=== PATIENT | male | born 1975 | race Caucasian/White ===

== ENCOUNTER 2019-09-25 22:33 | Outpatient (CLI) | payer SELFPAY | END 2019-09-25 22:34 | disposition critical access hospital (66) | LOC: EMS 22:33 | PROVIDERS: ATTEND Surgery | DX: R51 Headache (principal); M54.2 Cervicalgia; R50.9 Fever, unspecified | CPT/HCPCS: A0425; A0429 ==

== ENCOUNTER 2019-09-25 22:53 | Emergency (ER) | payer SELFPAY ==
--- NOTE | 2019-09-25 22:55 | ED Physician Documentation ---
History of Present Illness - Stated complaint Stated Complaint: SZ - Chief complaint Chief Complaint: Neuro - History obtained from History obtained from: Patient (The patient is a 43-year-old male who speaks a moderate amount of German but Georgian is his primary language he reports that he currently is living out of a hotel and he thinks he might of had a seizure EMS reports that his friend saw him shaking so they called 911 the patient's denying trauma, alcohol or drug use he denies any other complaints and reports that he is ready to go home.) Review of Systems Constitutional: reports: Reviewed and negative Eyes: reports: Reviewed and negative Ears: reports: Reviewed and negative Nose: reports: Reviewed and negative Throat: reports: Reviewed and negative Cardiac: reports: Reviewed and negative Respiratory: reports: Reviewed and negative GI: reports: Reviewed and negative : reports: Reviewed and negative Skin: reports: Reviewed and negative Musculoskeletal: reports: Reviewed and negative Neurologic: reports: Seizure Psychiatric: reports: Reviewed and negative Endocrine: reports: Reviewed and negative Immunocompromised: reports: Reviewed and negative PD PAST MEDICAL HISTORY - Present Medications Home Medications: Ambulatory Orders Medication Instructions Recorded Confirmed No Known Home Medications 09/26/19 09/26/19 - Allergies Allergies/Adverse Reactions: Allergies Allergy/AdvReac Type Severity Reaction Status Date / Time No Known Drug Allergies Allergy Verified 09/26/19 00:08 PD ED PE NORMAL - Vitals Vital signs reviewed: Yes - General General: Alert and oriented X 3, No acute distress - HEENT HEENT: PERRL - Neck Neck: Supple, no meningeal sign - Cardiac Cardiac: RRR, No murmur - Respiratory Respiratory: Clear bilaterally - Abdomen Abdomen: Normal bowel sounds, Soft, Non tender, Non distended - Derm Derm: Warm and dry - Extremities Extremities: No deformity - Neuro Neuro: Alert and oriented X 3, certified addiction counselor 2-12 intact, No motor deficit, No sensory deficit, Normal speech - Psych Psych: Normal mood, Normal affect Results - Vitals Vitals: Vital Signs - 24 hr 09/25/19 09/26/19 09/26/19 23:02 01:05 02:17 Temperature 36.6 C Heart Rate 89 78 76 Respiratory 20 16 14 Rate Blood Pressure 123/79 113/64 97/58 L O2 Saturation 97 94 95 Oxygen O2 Source Room air - EKG (time done) 11:25 Rate: Other (No STEMI) - Labs Labs: Laboratory Tests 09/25/19 09/25/19 09/25/19 23:35 23:35 23:35 WBC 9.9 RBC 4.53 L Hgb 13.8 L Hct 40.5 L MCV 89.4 MCH 30.5 MCHC 34.1 RDW 12.7 Plt Count 218 MPV 10.0 Neut # (Auto) 6.5 Lymph # (Auto) 2.0 [place] # (Auto) 1.1 H Eos # (Auto) 0.2 Baso # (Auto) 0.0 Absolute Nucleated RBC 0.00 Nucleated RBC % 0.0 Sodium 134 L Potassium 3.6 Chloride 101 Carbon Dioxide 25 Anion Gap 8.0 BUN 23 H Creatinine 0.7 Estimated GFR (MDRD) 124 Glucose 117 H Lactic Acid 1.3 Calcium 8.4 L Total Bilirubin 0.2 AST 23 ALT 25 Alkaline Phosphatase 49 Total Creatine Kinase 139 Troponin I High Sens Total Protein 6.6 L Albumin 3.6 Globulin 3.0 Albumin/Globulin Ratio 1.2 Lipase 36 Salicylates < 6.0 Acetaminophen < 10 L Ethyl Alcohol < 5.0 09/25/19 23:35 WBC RBC Hgb Hct MCV MCH MCHC RDW Plt Count MPV Neut # (Auto) Lymph # (Auto) [place] # (Auto) Eos # (Auto) Baso # (Auto) Absolute Nucleated RBC Nucleated RBC % Sodium Potassium Chloride Carbon Dioxide Anion Gap BUN Creatinine Estimated GFR (MDRD) Glucose Lactic Acid Calcium Total Bilirubin AST ALT Alkaline Phosphatase Total Creatine Kinase Troponin I High Sens 8.4 Total Protein Albumin Globulin Albumin/Globulin Ratio Lipase Salicylates Acetaminophen Ethyl Alcohol PD MEDICAL DECISION MAKING - ED course Complexity details: other (Patient was reevaluated multiple timesWhile in the emergency department he has been seizure-free he is awake, alert, oriented no signs of any seizure-like activity I explained all of his results to include imaging of the head and the labs as well. Patient reports that he feels better and he would like to be discharged home I had a lengthy discussion with this patient regarding the fact that this could possibly be new onset seizures I did offer to transfer the patient to a higher level of care for neurology evaluation however the patient reports that he would like to be discharged home at this time he does have medical decision-making capability and capacity accepts he accepts all risks to include repeat seizures and or any adverse outcomes such as sudden or permanent disability.) Departure - Departure Disposition: Home, Self Care Clinical Impression: Seizure Condition: Good Instructions: First Aid Seizures Follow-Up: YOUR,DOCTOR [Other] Print Language: Georgian Discharge Date/Time: 09/26/19 02:25
[2019-09-25] MEDS ORDERED: levETIRAcetam INJ 1,500 MG in SODIUM CHLORIDE 0.9% 100ML 100 ML IV STA (23:19)
[2019-09-25 23:44] LABS: BASOPHILS % (AUTO) 0.3 %; EOSINOPHILS # (AUTO) 0.2 10^3/uL (0.0-0.7); EOSINOPHILS % (AUTO) 2.3 %; HGB - HEMOGLOBIN 13.8 g/dL (14.0-18.0); MEAN CORPUSCULAR HEMOGLOBIN 30.5 pg (27.0-31.0); MEAN CORPUSCULAR HGB CONC 34.1 g/dL (32.0-36.0); MEAN CORPUSCULAR VOLUME 89.4 fL (80.0-94.0); MONOCYTES # (AUTO) 1.1 10^3/uL (0.0-1.0); MONOCYTES % (AUTO) 10.8 %; NEUTROPHILS # (AUTO) 6.5 10^3/uL (1.5-6.6); NEUTROPHILS % (AUTO) 66.1 %; PLT - PLATELET COUNT 218 10^3/uL (130-450); RED BLOOD COUNT 4.53 10^6/uL (4.70-6.10); RED CELL DISTRIBUTION WIDTH 12.7 % (12.0-15.0); WHITE BLOOD COUNT 9.9 x10^3/uL (4.8-10.8)
[2019-09-25 23:59] LABS: ACETAMINOPHEN < 10 ug/mL (10-30); ALBUMIN 3.6 g/dL (3.2-5.5); ALBUMIN/GLOBULIN RATIO 1.2 (1.0-2.2); ALKALINE PHOSPHATASE 49 IU/L (42-121); ALT ALANINE AMINOTRANSFERASE 25 IU/L (10-60); AST ASPARTATE AMINOTRANSFERASE 23 IU/L (10-42); BILIRUBIN,TOTAL 0.2 mg/dL (0.2-1.0); BUN - BLOOD UREA NITROGEN 23 mg/dL (6-20); CALCIUM 8.4 mg/dL (8.5-10.3); CARBON DIOXIDE - CO2 25 mmol/L (21-32); CHLORIDE 101 mmol/L (101-111); CK- CREATINE KINASE 139 IU/L (22-269); CREATININE 0.7 mg/dL (0.6-1.2); GFR - MDRD 124 (>89); GLUCOSE 117 mg/dL (70-100); LIPASE 36 U/L (22-51); SALICYLATE < 6.0 mg/dL; SODIUM 134 mmol/L (135-145); TOTAL PROTEIN 6.6 g/dL (6.7-8.2)
--- NOTE | 2019-09-26 01:13 | XRAY Report ---
Reason: ams Procedure Date: 09/26/2019 Accession Number: [id number] / [id number] Procedure: XR - Chest 1 View X-Ray CPT Code: 42302 Final Report FULL RESULT: EXAM: CHEST RADIOGRAPHY EXAM DATE: 09/26/2019 12:59 AM. CLINICAL HISTORY: Altered mental status COMPARISON: None. TECHNIQUE: 1 view. FINDINGS: The mediastinal and cardiac silhouettes are normal. The lungs are clear. A calcified granuloma is seen in the left upper lobe. No pleural effusion or pneumothorax is seen. The osseous structures are intact. IMPRESSION: Clear lungs. RADIA
--- NOTE | 2019-09-26 01:16 | CT Report ---
Reason: seizure/ams Procedure Date: 09/26/2019 Accession Number: [id number] / [id number] Procedure: CT - HEAD WO CPT Code: Final Report FULL RESULT: EXAM: CT HEAD EXAM DATE: 09/26/2019 01:00 AM. CLINICAL HISTORY: Seizure/ams. COMPARISON: None. TECHNIQUE: Multiaxial CT images were obtained from the foramen magnum to the vertex. Reformats: Sagittal and coronal. IV contrast: None. In accordance with CT protocol optimization, one or more of the following dose reduction techniques were utilized for this exam: automated exposure control, adjustment of mA and/or KV based on patient size, or use of iterative reconstructive technique. FINDINGS: Parenchyma: No intraparenchymal hemorrhage. No evidence of mass, midline shift, or CT findings of infarction. Leiva-white differentiation is distinct. Extraaxial Spaces: Normal for age. No subdural or epidural collections identified. Ventricles: Normal in size and position. Sinuses and Orbits: Imaged paranasal sinuses, orbits, and mastoids show no significant abnormality. Bones: A left frontal calvarial defect is seen. There is no evidence of acute fracture. Other: None. IMPRESSION: No acute intracranial abnormalities. RADIA
[2019-09-26 02:18] VITALS: BP 97/58
== END 2019-09-26 02:25 | disposition home or self-care (01) ==
LOC: EDBD → ED 22:53
DX: R56.9 Unspecified convulsions (principal)
CPT/HCPCS: 36415; 70450; 71045; 80053; 80307; 80320; 80329; 82550; 83605; 83690; 84484; 85025; 93005; 96365; 99283

== ENCOUNTER 2019-09-28 19:58 | Emergency (ER) | payer SELFPAY ==
[2019-09-28 20:06] VITALS: BP 132/98
--- NOTE | 2019-09-28 20:17 | ED Physician Documentation ---
PD HPI CHEST PAIN - Stated complaint Stated Complaint: RAPID HEART BEAT - Chief complaint Chief Complaint: Cardiac - History obtained from History obtained from: Patient - History of Present Illness Timing - onset: Other (This is a 43-year-old gentleman who at the age of 31 got kicked in the head by a horse. He was in [place] at the time and had a plastic plate placed in his skull. He intermittently uses cocaine and marijuana. Says he has not used cocaine in about 2 weeks. He was seen here 2 nights ago for a headache, CT imaging at the time was negative except for the known calvarial defect. His labs were normal. Today he had a sensation of rapid heartbeat. Bothered him twice, once while sleeping last night and once today. He never lost consciousness but felt very shaky when it was happening and also short of breath when it was happening. Now he feels fine. There is no associated chest pain. No pedal edema or calf pain.) Review of Systems Constitutional: denies: Fever, Chills Cardiac: reports: Palpitations. denies: Chest pain / pressure, Pedal edema, Calf pain Respiratory: reports: Dyspnea. denies: Cough GI: denies: Abdominal Pain, Nausea, Vomiting PD PAST MEDICAL HISTORY - Past Surgical History Past Surgical History: No - Present Medications Home Medications: Ambulatory Orders Medication Instructions Recorded Confirmed No Known Home Medications 09/26/19 09/26/19 - Allergies Allergies/Adverse Reactions: Allergies Allergy/AdvReac Type Severity Reaction Status Date / Time No Known Drug Allergies Allergy Verified 09/26/19 00:08 - Social History Does the pt smoke?: No Smoking Status: Never smoker Does the pt drink ETOH?: Yes Does the pt have substance abuse?: Yes - Immunizations Immunizations are current?: No Immunizations: TDAP >10years/unknown - POLST Patient has POLST: No PD ED PE NORMAL - Vitals Vital signs reviewed: Yes - General General: Alert and oriented X 3, Other (Appears slightly anxious but declines medicine for anxiety right now.) - HEENT HEENT: PERRL, EOMI - Neck Neck: Supple, no meningeal sign, No bony TTP - Cardiac Cardiac: RRR, No murmur - Respiratory Respiratory: No respiratory distress, Clear bilaterally - Abdomen Abdomen: Non tender - Back Back: No CVA TTP, No spinal TTP - Derm Derm: Normal color, Warm and dry - Extremities Extremities: No edema, No calf tenderness / cord - Neuro Neuro: Alert and oriented X 3, Normal speech Results - Vitals Vitals: Vital Signs - 24 hr 09/28/19 20:02 Temperature 36.4 C L Heart Rate 111 H Respiratory 18 Rate Blood Pressure 132/98 H O2 Saturation 98 Oxygen O2 Source Room air - EKG (time done) 2016 Rate: Rate (enter#) (92) Rhythm: NSR [place]: Normal Intervals: Normal [place] QRS: Normal Ischemia: Normal ST segments. No: ST elevation c/w ischemia, ST elevation c/w repol, ST depression - Labs Labs: Laboratory Tests 09/28/19 09/28/19 09/28/19 20:28 20:28 20:28 WBC 7.5 RBC 5.14 Hgb 15.4 Hct 45.8 MCV 89.1 MCH 30.0 MCHC 33.6 RDW 12.6 Plt Count 286 MPV 9.9 Neut # (Auto) 4.3 Lymph # (Auto) 2.3 [place] # (Auto) 0.8 Eos # (Auto) 0.2 Baso # (Auto) 0.0 Absolute Nucleated RBC 0.00 Nucleated RBC % 0.0 Sodium 137 Potassium 3.5 Chloride 100 L Carbon Dioxide 25 Anion Gap 12.0 BUN 15 Creatinine 0.9 Estimated GFR (MDRD) 93 Glucose 119 H Calcium 9.1 Total Bilirubin 0.8 AST 21 ALT 27 Alkaline Phosphatase 54 Troponin I High Sens 7.5 Total Protein 7.9 Albumin 4.3 Globulin 3.6 Albumin/Globulin Ratio 1.2 Lipase 22 PD MEDICAL DECISION MAKING - ED course ED course: 43-year-old gentleman presents with 2 episodes of rapid heart rate, pattern most consistent with anxiety. Says he has not used cocaine in a couple of weeks. Nothing else in the history or physical other than tachycardia to suggest DVT/PE. Departure - Departure Disposition: 01 Home, Self Care Clinical Impression: Palpitations Condition: Good Record reviewed to determine appropriate education?: Yes Instructions: ED Palpitations Comments: Your heart testing was completely normal, return for new or worsening symptoms. Follow-up with your primary care physician as soon as possible. Forms: Activity restrictions
[2019-09-28 20:33] LABS: BASOPHILS % (AUTO) 0.4 %; EOSINOPHILS # (AUTO) 0.2 10^3/uL (0.0-0.7); EOSINOPHILS % (AUTO) 2.1 %; HGB - HEMOGLOBIN 15.4 g/dL (14.0-18.0); LYMPHOCYTES # (AUTO) 2.3 10^3/uL (1.5-3.5); MEAN CORPUSCULAR HGB CONC 33.6 g/dL (32.0-36.0); MEAN CORPUSCULAR VOLUME 89.1 fL (80.0-94.0); MEAN PLATELET VOLUME 9.9 fL (7.4-11.4); MONOCYTES # (AUTO) 0.8 10^3/uL (0.0-1.0); MONOCYTES % (AUTO) 10.1 %; NEUTROPHILS # (AUTO) 4.3 10^3/uL (1.5-6.6); NEUTROPHILS % (AUTO) 57.3 %; PLT - PLATELET COUNT 286 10^3/uL (130-450); RED BLOOD COUNT 5.14 10^6/uL (4.70-6.10); RED CELL DISTRIBUTION WIDTH 12.6 % (12.0-15.0); WHITE BLOOD COUNT 7.5 x10^3/uL (4.8-10.8)
[2019-09-28 20:48] LABS: ALBUMIN 4.3 g/dL (3.2-5.5); ALBUMIN/GLOBULIN RATIO 1.2 (1.0-2.2); BILIRUBIN,TOTAL 0.8 mg/dL (0.2-1.0); CALCIUM 9.1 mg/dL (8.5-10.3); CREATININE 0.9 mg/dL (0.6-1.2); TOTAL PROTEIN 7.9 g/dL (6.7-8.2)
== END 2019-09-28 21:14 | disposition home or self-care (01) ==
LOC: ED 19:58
DX: R00.2 Palpitations (principal)
CPT/HCPCS: 36415; 80053; 83690; 84484; 85025; 93005; 99283; 99284